=== PATIENT | male | born 1990 | race Caucasian/White ===

== ENCOUNTER 2016-10-18 02:44 | Emergency (ER) | payer OTHER ==
[~2016-10-18] VITALS: Ht 172.7 cm; Wt 68.0 kg
[2016-10-18] MEDS ORDERED: Ketorolac 30mg Inj IV ONE (03:30)
[2016-10-18 03:52] LABS: BASOPHILS % (AUTO) 0.9 % (0.0-2.0); EOSINOPHILS % (AUTO) 0.7 % (0.0-3.0); LYMPHOCYTES % (AUTO) 17.9 % (20.0-45.0); MEAN CORPUSCULAR HEMOGLOBIN 30.3 PG (27.0-31.0); MEAN CORPUSCULAR HGB CONC 35.9 G/DL (32.0-36.0); MEAN CORPUSCULAR VOLUME 85 FL (80-99); MEAN PLATELET VOLUME 8.5 FL (6.5-10.1); MONOCYTES % (AUTO) 4.2 % (1.0-10.0); NEUTROPHILS % (AUTO) 76.4 % (45.0-75.0); PLATELET COUNT 263 K/UL (150-450); RED BLOOD COUNT 5.23 M/UL (4.70-6.10); RED CELL DISTRIBUTION WIDTH 11.7 % (11.6-14.8); WHITE BLOOD COUNT 12.4 K/UL (4.8-10.8)
[2016-10-18 04:12] LABS: APPEARANCE,URINE CLEAR; KETONES,URINE 1+ (NEGATIVE); LEUKOCYTE ESTERASE ,URINE NEGATIVE (NEGATIVE); NITRITE,URINE NEGATIVE (NEGATIVE); PH,URINE 5 (4.5-8.0); PROTEIN,URINE 2+ (NEGATIVE); UROBILINOGEN,URINE NORMAL MG/DL (0.0-1.0)
[2016-10-18 04:19] LABS: ANION GAP 17 (5-15); CALCIUM 9.6 mg/dL (8.6-10.2); CARBON DIOXIDE 22 mEQ/L (20-30); CHLORIDE 98 mEQ/L (98-107); CREATININE 0.9 mg/dL (0.7-1.2); GLOMERULAR FILTRATION RATE > 60 mL/min (>60); HEMOLYSIS 6; POTASSIUM 3.8 mEQ/L (3.4-4.9); SODIUM 137 mEQ/L (135-145)
[2016-10-18] MEDS ORDERED: TAMSULOSIN HCL0.4 MG ORAL (04:23)
[2016-10-18] MEDS ORDERED: HYDROCODON-ACE1 EA15 ORAL (04:23)
--- NOTE | 2016-10-18 04:24 | Emergency Room Report ---
History of Present Illness General Chief Complaint: Abdominal Pain Source: Patient Present Illness HPI This is a 25-year-old male with no past medical history. He had acute onset of left flank pain around 2-3 hours prior to arrival. Pain radiates down the groin into the testicle area. Pain was severe 10 out of 10. He has vomiting for the pain. Now sharp achy pain. No fever or chills. No nausea or vomiting. No chest pain. Never had this problem before. No hematuria. No dysuria. Allergies: Coded Allergies: No Known Allergies (Unverified , 10/18/16) Patient History Past Medical History: none, see triage record, old chart reviewed Past Surgical History: none Pertinent Family History: none Social History: Denies: smoking Immunizations: other Reviewed Nursing Documentation: PMH: Agreed, PSxH: Agreed Review of Systems Eye: Denies: blurred vision, eye pain ENT: Denies: ear pain, nose congestion, throat swelling Respiratory: Denies: cough, shortness of breath Cardiovascular: Denies: chest pain, palpitations Gastrointestinal: Reports: abdominal pain, nausea, vomiting, Denies: diarrhea Musculoskeletal: Denies: back pain, joint pain Skin: Denies: rash Neurological: Denies: headache, numbness Endocrine: Denies: increased thirst, increased urine Hematologic/Lymphatic: Denies: easy bruising All Other Systems: negative except mentioned in HPI Physical Exam Vital Signs Date Time Temp Pulse Resp B/P Pulse Ox O2 Delivery O2 Flow Rate FiO2 10/18/16 03:06 97.5 93 18 130/75 100 Room Air vitals normal Sp02 EP Interpretation: reviewed, normal General Appearance: well appearing, no apparent distress, alert Head: normocephalic, atraumatic Eyes: bilateral eye EOMI, bilateral eye PERRL ENT: hearing grossly normal, normal pharynx Neck: full range of motion, supple, no meningismus Respiratory: chest non-tender, lungs clear, normal breath sounds Cardiovascular #1: regular rate, rhythm, no murmur Gastrointestinal: normal bowel sounds, non tender, no mass, no organomegaly, no bruit, non-distended Musculoskeletal: back normal, gait/station normal, normal range of motion Psychiatric: mood/affect normal Skin: warm/dry Medical Decision Making Diagnostic Impression: Primary Impression: Ureteral calculus, left ER Course Patient presents with renal colic from ureteral stone. He felt better now. No evidence of infection. No kidney injury. We'll discharge home. Will refer to urologist. Lab Results Impression labs unremarkable CT/MRI/US Diagnostic Results CT/MRI/US Diagnostic Results : Imaging Test Ordered: CT abd and pelvis Impression Read by radiologist. 4 mm left mid ureter stone. Last Vital Signs Date Time Temp Pulse Resp B/P Pulse Ox O2 Delivery O2 Flow Rate FiO2 10/18/16 03:06 97.5 93 18 130/75 100 Room Air Status: improved Disposition: HOME, SELF-CARE Condition: Stable Scripts Hydrocodone/Acetaminophen 5-325* (HYDROCODONE/ACETAMINOPHEN 5-325*) 1 Each Tablet 1 TAB ORAL Q6H Y for For Pain, #30 TAB 0 Refills Prov: TIFFANIE JENKINS M.D. 10/18/16 Tamsulosin Hcl (TAMSULOSIN HCL*) 0.4 Mg Cap.er.24h 0.4 MG ORAL BEDTIME, #14 CAP Prov: TIFFANIE JENKINS M.D. 10/18/16 Additional Instructions: Followup with your DrMarisol within a week. You may be referred to see a urologist. Return if symptom worsen. TIFFANIE JENKINS M.D. Oct 18, 2016 04:23
[2016-10-18] MEDS ORDERED: Morphine Sulfate 4mg/ml Inj IVP ONE (04:30)
[2016-10-18 04:32] LABS: RBC,URINE TNTC /HPF (0 - 0); WBC,URINE 0-2 /HPF (0 - 0)
[2016-10-18 04:50] VITALS: BP 119/69
[2016-10-18 05:21] VITALS: BP 119/69
--- NOTE | 2016-10-18 08:58 | Diagnostic Imaging Report ---
Indication: Abdominal pain Technique: Continuous helical transaxial imaging of the abdomen and pelvis was obtained from the lung bases to the pubic symphysis. No intravenous contrast was administered. Coronal 2-D reformats were also obtained. Total Dose length Product (DLP): [address] Dose Index Volume (CTDIvol): 9.4 mGy Comparison: none Findings: The lung bases are clear. There is left hydronephrosis secondary to a mid ureteral stone measuring about 5 mm at the level of the left pelvic brim. Moderate stool noted. No other stones are identified. 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 Gallbladder is unremarkable. Suggestion of an accessory spleen noted near the splenic hilum. Appendix is retrocecal and appears normal. Impression: 5 mm left mid ureteral stone with hydronephrosis. Normal appendix Moderate stool Accessory spleen Malrotation of both kidneys [facility] has communicated the preliminary results to the Emergency Department. Their findings are largely concordant with this report. The CT scanner at [facility] is accredited by the [employer] and the scans are performed using protocols designed to limit radiation exposure to as low as reasonably achievable to attain images of sufficient resolution adequate for diagnostic evaluation.
== END 2016-10-18 05:21 | disposition home or self-care (01) ==
LOC: EMR 03:30
DX: N13.2 Hydronephrosis with renal and ureteral calculous obstruction (principal); Q63.2 Ectopic kidney; Q89.09 Congenital malformations of spleen
CPT/HCPCS: 36415; 74176; 80048; 81003; 85025; 96361; 96374; 96375; 99284; J1885; J2270; J2405